=== PATIENT | male | born 1965 | race Caucasian/White ===

== ENCOUNTER → 2023-04-11 | Outpatient (CLI) | payer BC ==
--- NOTE | 2023-04-12 06:46 | MR ---
EXAMINATION TYPE: MR knee LT wo con DATE OF EXAM: 04/11/2023 COMPARISON: Outside left knee x-ray April 08, 2023 HISTORY: Left knee pain for 6 weeks TECHNIQUE: Multiplanar, multisequence images of the knee is performed without IV contrast. FINDINGS: MEDIAL MENISCUS: Marked truncated appearance to posterior horn with abnormal signal extending to marvin cular surface. LATERAL MENISCUS: Horizontal and oblique increased signal extends to the inferior articular surface s een best on coronal images. CRUCIATE LIGAMENTS: The anterior and posterior cruciate ligaments are intact. Significant increased s ignal and thinning of the anterior cruciate ligament. COLLATERAL LIGAMENTS: The medial collateral ligament and lateral collateral ligament complex are inta ct and unremarkable. EXTENSOR MECHANISM: Visualized quadriceps and patellar tendons are intact. EFFUSION: No significant suprapatellar joint effusion. POPLITEAL CYST: No popliteal/neal cyst. TRICOMPARTMENT SPACES: Mild to moderate tricompartment joint space loss and spurring. CARTILAGE: Chondromalacia patella with thinning of the articular cartilage along the posterior patell ar pole. Some fissuring and cartilage loss medial and lateral tibiofemoral compartments. BONE MARROW SIGNAL: No focal abnormal marrow signal is appreciated. OTHER: No additional significant abnormality is appreciated. IMPRESSION: 1. Fairly moderate tricompartment degenerative changes as detailed above. 2. Full-thickness tear lateral meniscus. 3. Complex full-thickness tear posterior horn of medial meniscus. 4. Partial tearing of the anterior cruciate ligament.
== END | disposition home or self-care (01) ==
LOC: RADMRIMAIN 19:16
PROVIDERS: ATTEND Orthopaedic Surgery
DX: M17.12 Unilateral primary osteoarthritis, left knee (principal); M23.322 Other meniscus derangements, posterior horn of medial meniscus, left knee; M23.301 Other meniscus derangements, unspecified lateral meniscus, left knee; M23.612 Other spontaneous disruption of anterior cruciate ligament of left knee

== ENCOUNTER → 2023-05-03 | Outpatient (CLI) | payer BC ==
[2023-05-03 13:44] LABS: Anion Gap 11.7 mmol/L (4.00-12.00); Carbon Dioxide 24.3 mmol/L (21.6-31.8); Potassium 4.7 mmol/L (3.5-5.5)
[2023-05-04 07:09] LABS: Basophils # (A) 0.03 X 10*3/uL (0.00-0.10); Basophils % (A) 0.5 %; Eosinophils # (A) 0.04 X 10*3/uL (0.04-0.35); Eosinophils % (A) 0.7 %; HCT 46.9 % (39.6-50.0); HGB 15.2 g/dL (13.0-17.0); Lymphocytes # (A) 1.86 X 10*3/uL (0.90-5.00); Lymphocytes % (A) 33.2 %; MCH 30.7 pg (27.0-32.0); MCHC 32.4 g/dL (32.0-37.0); MCV 94.7 FL (80.0-97.0); Monocytes # (A) 0.47 X 10*3/uL (0.20-1.00); Monocytes % (A) 8.4 %; NRBC Per 100 WBC 0 X 10*3/uL (0.00-0.01); Platelet Count 202 X 10*3/uL (140-440); RBC 4.95 X 10*6/uL (4.40-5.60); RDW 13.2 % (11.5-14.5); WBC 5.61 X 10*3/uL (4.50-10.00)
== END | disposition home or self-care (01) ==
LOC: LABPAT 08:56
PROVIDERS: ATTEND Orthopaedic Surgery
DX: Z01.812 Encounter for preprocedural laboratory examination (principal); M23.92 Unspecified internal derangement of left knee; I45.10 Unspecified right bundle-branch block; I42.2 Other hypertrophic cardiomyopathy; I23.1 Atrial septal defect as current complication following acute myocardial infarction; R94.31 Abnormal electrocardiogram [ECG] [EKG]
CPT/HCPCS: 80051; 85025; 93005

== ENCOUNTER 2023-05-07 09:07 | Day surgery (SDC) | payer BC ==
[2023-05-05 12:16] VITALS: BMI 44.9
--- NOTE | 2023-05-07 07:37 | HP ---
HISTORY AND PHYSICAL DATE OF SURGERY: 05/07/2023. Samuel Guaman is a 57-year-old gentleman seen with progressive left knee pain. We discussed options regarding treatment. He elected to proceed with left knee arthroscopy. Consent was obtained. PAST MEDICAL HISTORY: Hypertension. PAST SURGICAL HISTORY: Cholecystectomy, lumbar spine surgery. DAILY MEDICATIONS: Atorvastatin, diclofenac, gabapentin. ALLERGIES: None. SOCIAL HISTORY: He denies tobacco use. PHYSICAL EVALUATION OF THE LEFT KNEE: His range of motion is 0 to 130 degrees. He has a mild effusion. Tenderness along the medial and lateral joint lines. Positive medial Heather's. Positive lateral Heather's. Ligaments stable. Hip rotation without pain. Distal neurovascular exam is intact. LEFT KNEE RADIOGRAPHS: Revealed mild medial and moderate patellofemoral compartment osteoarthritis. MRI of left knee revealed medial and lateral meniscal tears. IMPRESSION: 1. Internal derangement of left knee with medial and lateral meniscal tears. 2. Hypertension. PLAN: Left knee arthroscopy with partial medial/lateral meniscectomy and debridement. MMODL / IJN: [id number] /
[~2023-05-07 09:07] MED LIST: LIDOCAINE 1% (10MG/ML) FOR IV START INTRADERMA PRN; MIDAZOLAM 2 MG/2 ML VIAL IV PRN
[2023-05-07] MEDS: LACTATED RINGERS 1,000 ML IV SCH (09:37)
[2023-05-07] MEDS: ONDANSETRON 4 MG/2 ML VIAL IVP ONE (09:54)
[2023-05-07] MEDS: FAMOTIDINE 20 MG/2 ML VIAL IVP ONE (09:54)
[2023-05-07] MEDS: DEXAMETHASONE SOD PHOSPHATE 4 MG/ML 1 ML VIAL IV ONE (09:54)
[2023-05-07] MEDS ORDERED: SUCCINYLCHOLINE CHLORIDE 200 MG/10 ML VIAL IV ONE (10:11)
[2023-05-07] MEDS ORDERED: PROPOFOL 10 MG/ML 20 ML VIAL IV ONE (10:11)
[2023-05-07] MEDS ORDERED: fentaNYL (PF) 50 MCG/ML 2 ML AMP ONE (10:11)
[2023-05-07] MEDS ORDERED: MIDAZOLAM 2 MG/2 ML VIAL ONE (10:11)
[2023-05-07] MEDS ORDERED: HYDROmorphone (PF) 1 MG/ML ONE (10:11)
[2023-05-07] MEDS ORDERED: LIDOCAINE 1% INJ 10MG/ML (20 ML MDV) ONE (10:11)
[2023-05-07] MEDS: ceFAZolin 3 GM in SODIUM CHLORIDE 0.9% 100 ML IVPB PRN (10:17)
[2023-05-07] MEDS: BUPIVACAINE (PF) 0.25% 30 ML VIAL SQ ONE ×2 (10:35→10:51)
[2023-05-07] MEDS: HYDROmorphone 0.5 MG/0.5 ML SYRINGE IVP PRN (11:12)
--- NOTE | 2023-05-07 11:19 | P.OP ---
Date of Procedure: 05/07/23 Preoperative Diagnosis: Internal derangement left knee Postoperative Diagnosis: 1. Tear medial and lateral meniscus left knee 2. Grade IV chondromalacia femoral sulcus left knee 3. Reactive synovitis medial, lateral and suprapatellar compartments left knee 4. Loose bodies left knee Procedure(s) Performed: 1. Arthroscopic partial medial and lateral meniscectomy left knee 2. Arthroscopic microfracture femoral sulcus left knee 3. Arthroscopic partial synovectomy medial, lateral and suprapatellar compartments left knee 4. Arthroscopic removal 1 cm loose body left knee 5. Arthroscopic removal 8 mm loose body left knee Anesthesia: TAMI, local Surgeon: Iggy Cordova Estimated Blood Loss (ml): 12 Pathology: none sent Condition: stable Disposition: PACU Indications for Procedure: 57-year-old gentleman seen with progressive left knee pain. After having treatment options discussed, he elected to proceed with arthroscopy. Operative Findings: See description of procedure Description of Procedure: Patient was taken to the operative suite. Patient underwent a general anesthetic by the department of anesthesia. Patient was given preoperative antibiotics. The left lower extremity was placed in a well-padded arthroscopic leg ram. The left leg was prepped and draped in the normal sterile orthopedic fashion. A lateral parapatellar and suprapatellar incision was made. Trochars were inserted. Arthroscopy was initiated. Suprapatellar pouch revealed diffuse thick reactive synovitis. The patellofemoral joint appeared to articular congruently. There was grade II chondromalacia of the patella and an area of grade IV chondromalacia involving the lateral femoral sulcus along with diffuse grade III chondromalacia changes involving the remaining femoral sulcus. The scope was guided into the medial gutter. No loose body or plica were identified. The scope was then guided into the medial compartment. A medial parapatellar incision was made. Trocar inserted followed by probe. There was a complex tear involving the posterior horn of the medial meniscus. There were grade II chondromalacia changes involving the tibial plateau. There was thick reactive synovitis anteriorly. I performed a partial medial meniscectomy getting down to stable meniscal tissue. I performed a partial synovectomy decompressing the reactive synovitis. The residual meniscus was probed and was found to be stable. There was good decompression of the synovitis. Scope and probe were then guided into the intercondylar notch. There was a loose body noted in the intercondylar notch. I enlarged the medial portal site with a knife. I introduced a loose body forceps and retrieved loose body without difficulty. Loose body itself measured about 1 cm. Cruciates were identified, probed and found to be stable. The scope and probe were then guided into lateral compartment. I encountered a second loose body. I introduced a loose body forceps and retrieved that and removed it without difficulty. That loose body measured 8 mm. There was a radial tear involving the mid body lateral meniscus. There was near grade II/III chondromalacia lateral femoral condyle with an osteochondral flap tear. There was thick reactive synovitis anteriorly. I performed a partial lateral meniscectomy getting down to stable meniscal tissue. I performed a chondroplasty of lateral femoral condyle getting down to stable osteochondral tissue. I performed a partial synovectomy decompressing the reactive synovitis. The residual meniscus was stable. The residual osteochondral surface was stable. There was good decompression of the synovitis. The scope was in guided back into the suprapatellar compartment. I introduced a motorized shaver into the suprapatellar compartment. I performed a partial synovectomy. I now introduced a microfracture awl and I performed a microfracture to the area of exposed bone along the lateral femoral sulcus that measured about 2 cm in diameter. I created a microfracture in that area penetrating the bone with resultant bleeding at the microfracture site. The residual osteochondral surface was probed and was found to be stable. There was good decompression of the synovitis. I now took 1 more look around the entire knee, no residual debris. Instruments were now removed from the joint. The joint was infiltrated with .25% Marcaine. Steri-Strips were applied to the portal sites. Sterile dressings were applied. The patient was placed into a TONEY hose. No tourniquet was utilized. The patient was awakened, transferred to a bed and taken to recovery stable satisfactory condition.
[2023-05-07 11:36] VITALS: TEMP 97.2
[2023-05-07 13:39] VITALS: BP 134/68; PULSE 72; RESP 20
== END 2023-05-07 13:14 | disposition home or self-care (01) ==
LOC: OR 09:07
PROVIDERS: ATTEND Orthopaedic Surgery
DX: S83.282A Other tear of lateral meniscus, current injury, left knee, initial encounter (principal); M65.862 Other synovitis and tenosynovitis, left lower leg; M94.262 Chondromalacia, left knee; I10 Essential (primary) hypertension; Z90.89 Acquired absence of other organs; Z98.890 Other specified postprocedural states; Z79.899 Other long term (current) drug therapy; X58.XXXA Exposure to other specified factors, initial encounter
CPT/HCPCS: 29880; 29879; J2250; J0330; J1100; J0690; J2405; J2001; J3010; J3490; J1170 ×2; J2704; J0665